=== PATIENT | female | born 2000 | race Caucasian/White ===

== ENCOUNTER → 2024-07-19 13:35 | Outpatient (BNVA) | payer SELFPAY | PROVIDERS: Visit Provider Nurse Practitioner Women's Health | DX: N91.2 Amenorrhea, unspecified (principal); Z32.01 Encounter for pregnancy test, result positive | CPT/HCPCS: 81025; 84144; 84702; 86850; 86900 ==

== ENCOUNTER → 2024-07-21 08:42 | Outpatient (BNVA) | payer SELFPAY | PROVIDERS: Visit Provider Nurse Practitioner Women's Health | DX: N96 Recurrent pregnancy loss (principal) | CPT/HCPCS: 84144; 84702 ==

== ENCOUNTER → 2024-07-26 12:20 | Outpatient (BNVA) | payer SELFPAY | PROVIDERS: Visit Provider Nurse Practitioner Women's Health | DX: Z36.87 Encounter for antenatal screening for uncertain dates (principal) | CPT/HCPCS: 76817 ==

== ENCOUNTER → 2024-08-15 14:01 | Outpatient (BNVA) | payer OTHER, SELFPAY | PROVIDERS: Visit Provider Obstetrics & Gynecology | DX: Z34.90 Encounter for supervision of normal pregnancy, unspecified, unspecified trimester (principal) | CPT/HCPCS: 84315 ==

== ENCOUNTER 2024-08-24 12:07 | Emergency (ER) | payer OTHER, SELFPAY ==
[2024-08-24 12:11] VITALS: BP 116/75; PULSE 99; RESP 16; TEMP 36.7; O2SAT 98
--- NOTE | 2024-08-24 12:25 | US_ITS ---
WS: [id number] EARLY OBSTETRICAL ULTRASOUND (<14 WEEKS). HISTORY: suspected miscarriage 11 weeks COMPARISON: 07/26/2024 Previously described intrauterine gestational sac is not identified. There is now markedly thickened heterogeneous endometrium. No normal residual gestational sac identified. No pole or heart rate identified. There is no free fluid. No adnexal mass other than the ovaries. US/US OB <=14 wk fetus w transvag IMPRESSION: 1. Incomplete spontaneous . 2. Large amount of retained products of the conception within the endometrium. No pole or cardiac activity identified.
[2024-08-24 13:23] LABS: HCG, Serum Qual Positive (Negative)
[2024-08-24 16:01] VITALS: BP 90/63; PULSE 97; RESP 16; O2SAT 99
--- NOTE | 2024-08-24 16:23 | W.ED.FEMALGU ---
HPI - Female Genitourinary General: Chief complaint: Vaginal Bleeding Stated complaint: possible miscarriage Time Seen by Provider: 08/24/24 16:01 History of Present Illness: 24-year-old female reports she is at approximately 11 weeks . She started having some cramping and bleeding last night. She discussed with her INJECTION MOLDER and was sent to the ER for evaluation of possible miscarriage. She reports her bleeding is down to minimal and she only has occasional cramps but no constant discomfort. No lightheadedness, dizziness, passing out. 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 Related Data Previous Rx's ?Medication ?Instructions ?Recorded progesterone micronized 200 mg 400 mg (2 x 200 mg) PO DAILY #60 07/20/24 capsule caps hydrocodone 5 mg-acetaminophen 325 1 tab PO Q4H PRN pain #20 tabs 08/24/24 mg tablet naproxen 250 mg tablet 250 mg PO BID PRN pain #20 tabs 08/24/24 Allergies Allergy/AdvReac Type Severity Reaction Status Date / Time No Known Allergies Allergy Verified 08/15/24 13:49 Review of Systems General: Reports: 10 or more systems reviewed and unremarkable except in HPI and below PFSH ED PFSH: Family History Denies family history of Colon cancer Ovarian cancer Diabetes Heart disease Breast cancer Uterine cancer Thyroid disease Stroke Social History Smoking and tobacco/nicotine status: never used tobacco/nicotine Physical Exam Const: COMMON NORMALS: no limitations, alert and well nourished EXAM LIMITATIONS: no altered mental status HENMT: COMMON NORMALS: normocephalic, atraumatic and external ears normal HEAD & SCALP: normocephalic and atraumatic EXTERNAL EAR: Yes external ears normal MOUTH: no muffled voice Eye: COMMON NORMALS: no scleral icterus Neck/C-Spine: COMMON NORMALS: no JVD GENERAL: Yes normal visual inspection and Yes trachea midline Resp: COMMON NORMALS: normal respiratory effort, No use of accessory muscles and clear to auscultation bilaterally AUSCULTATION: clear to auscultation bilaterally Cardio: COMMON NORMALS: no JVD and regular rate RATE: regular rate GI: COMMON NORMALS: Soft to palpation and non-tender PALPATION: Yes Soft to palpation and No Guarding due to palpation present (GI) Extremity: COMMON NORMALS: normal to inspection Neuro: COMMON NORMALS: moves all extremities, no focal motor deficits and no sensory deficits noted SENSORIUM/ORIENTATION: Yes alert SPEECH: speech normal Psych: COMMON NORMALS: mental status grossly normal, Normal thought process present, cooperative, normal affect and speech normal SPEECH: Yes normal speech THOUGHT PROCESS: Normal thought process present Skin: COMMON NORMALS: no rashes or lesions noted, turgor normal and no jaundice GENERAL SKIN EXAM: no rashes or lesions noted and turgor normal Course Vital Signs: Vital signs: Vital Signs Temperature 98.1 F 08/24/24 12:11 Pulse Rate 97 08/24/24 16:01 Respiratory Rate 16 08/24/24 16:01 Blood Pressure 90/63 08/24/24 16:01 Pulse Oximetry 99 08/24/24 16:01 Oxygen Delivery Me thod Room Air 08/24/24 12:11 MDM - Female Medical Decision Making Differential diagnosis includes threatened miscarriage, incomplete miscarriage, complete miscarriage, vaginal bleeding in early , subchorionic hemorrhage, other Rh type is negative. Patient will need RhoGAM. Microdoses of RhoGAM were not available. 1500 units was ordered. hCG qualitative was positive. Quantitative is pending Ultrasound of the uterus showed incomplete spontaneous . Large amount of retained products of conception no pole or cardiac activity Patient will get RhoGAM and I have counseled her about what to expect. She is going to contact her INJECTION MOLDER. Lab Data Radiology Impressions Obstetrics Ultrasound 08/24/24 12:25 IMPRESSION: 1. Incomplete spontaneous . 2. Large amount of retained products of the conception within the endometrium. No pole or cardiac activity identified. Laboratory Results HCG, Qual Positive (Negative) H 08/24/24 12:59 All radiology interpretation(s) finalized by discharge Discharge Plan Discharge Patient Disposition: Home Clinical Impression: Rh negative status during , Incomplete Condition: Stable Prescriptions: New hydrocodone-acetaminophen 5-325 mg tablet 1 tab PO Q4H PRN (Reason: pain) Qty: 20 0RF naproxen 250 mg tablet 250 mg PO BID PRN (Reason: pain) Qty: 20 0RF No Action progesterone micronized 200 mg capsule 400 mg PO DAILY Qty: 60 0RF Rx Instructions: take once daily at bedtime Discharge Orders: Discharge ED (Routine); Ordered 08/24/24 Ordered By: Everette Garcia Patient Instructions: Miscarriage (ED) Activity Restrictions/Additional Instructions: Version:1.0 StartHTML:[id number] EndHTML:[id number] StartFragment:[id number] EndFragment:[id number] Incomplete Miscarriage Discharge You have been diagnosed with an incomplete miscarriage at 11 weeks. This means that some tissue is still in your uterus. Your care team has chosen a management plan that is safe and supported by medical research. You will follow up with your nurse practitioner manager in 5 to 7 days. What to Expect: - You may have vaginal bleeding and cramping for several days. This is normal as your body passes the remaining tissue. - Bleeding should gradually decrease. It may be heavier than a period at first, then lighten. - You may see tissue or clots. This is expected. When to Seek Medical Help: - If you soak through two or more pads per hour for two hours in a row. - If you have severe pain that is not helped by [id number] pain medicine. - If you have a fever of 100.4?F (38?C) or higher, chills, or foul-smelling vaginal discharge. - If you feel dizzy, weak, or faint. Pain Management: - You can use acetaminophen (Tylenol) or ibuprofen (Advil, Motrin) as directed for pain. - A heating pad on your lower belly may help with cramps. Activity: - Rest as needed. You may return to normal activities as you feel able. - Avoid sexual intercourse, tampons, and douching until your doctor says it is safe. Follow-Up: - Keep your appointment with your nurse practitioner manager in 5 to 7 days. You may need an ultrasound or exam to make sure your uterus is empty. - If tissue remains, your doctor may discuss other options, such as medication or a minor procedure. Emotional Support: - Miscarriage can be emotionally difficult. Support from family, friends, or a counselor can help. Future Fertility: - Most women go on to have healthy pregnancies in the future. There is no evidence that expectant or medical management affects future fertility.[1]https://pubmed.ncbi.nlm.nih.gov/73958131[2]https://pubmed.ncbi.nlm.nih.gov/65919226[3]https://pubmed.ncbi.nlm.nih.gov/68762302[4]https://pubmed.ncbi.nlm.nih.gov/88742946[5]https://pubmed.ncbi.nlm.nih.gov/37619383 If you have any questions or concerns before your follow-up, contact your healthcare provider. Print Language: Lebanese Coding Level of Care Code ED Executive Assistant To General Counsel for Sarahi Patiño
[2024-08-24] MEDS: rho(d) immune globulin 1,500 unit Syringe 1500 UNIT IM (16:41)
[2024-08-24 17:12] VITALS: BP 121/78; PULSE 95; O2SAT 97
== END 2024-08-24 17:13 | disposition home or self-care (01) ==
PROVIDERS: Emergency Provider Emergency Medicine
DX: O03.4 Incomplete spontaneous abortion without complication (principal)
CPT/HCPCS: 36415; 76801; 76817; 84702; 84703; 96372; 99284; J2790

== ENCOUNTER 2024-08-25 09:28 | Emergency (ER) | payer OTHER, SELFPAY ==
[2024-08-25 09:32] VITALS: BP 119/80; PULSE 101; RESP 17; TEMP 36.7; O2SAT 97; BMI 33.6
--- NOTE | 2024-08-25 09:42 | US_ITS ---
WS: [id number] Pelvic ultrasound, 08/25/2024 Clinical Data: SAB w persistent bleeding Comparison: None. Findings: The uterus measures 10.1 cm x 6.0 cm x 5.1 cm. The endometrium is 1.8 cm. No intrauterine or abnormal intrauterine mass is seen. The ovaries were not imaged. There is minimal fluid in the cul-de-sac. The bladder was full and showed no bladder wall thickening or intraluminal defects. US/US pelvis lmt w transvag Impression: 1. Slightly enlarged uterus but no products of conception. 2. Endometrium 1.8 cm. 3. No imaging of the ovaries. 4. Minimal free fluid in the cul-de-sac.
[2024-08-25 09:56] LABS: Basophils % 0.3 %; Eosinophils # 0.1 10^3/uL (0.0-0.8); Eosinophils % 1.2 %; Hematocrit 33.4 % (36-47); Lymphocytes # 1.7 10^3/uL (0.8-4.8); Mean Corpuscular HGB Conc 33.5 g/dL (30-55); Mean Corpuscular Hemoglobin 30.3 pg (27-33); Mean Corpuscular Volume 90.3 fl (85-98); Mean Platelet Volume 8.7 fL (7.4-10.4); Monocytes # 0.3 10^3/uL (0.2-0.9); Monocytes % 4.1 %; Neutrophils # 4.72 10^3/uL (1.8-7.7); Neutrophils % 69.1 %; Nucleated Red Blood Cells % 0 %; Platelet Count 240 10^3/cmm (157-399); Red Cell Distribution Width 12.7 % (12.1-15.1); White Blood Count 6.83 10^3/uL (3.29-11.43)
[2024-08-25 10:16] LABS: Alanine Aminotransferase 17 U/L (0-33); Albumin Level 3.9 g/dL (3.5-5.2); Alkaline Phosphatase 50 U/L (35-105); Aspartate Amino Transferase 14 U/L (0-32); Blood Urea Nitrogen 8 mg/dL (6-20); Carbon Dioxide 22 mmol/L (22-29); Chloride 105 mmol/L (98-107); Creatinine Clr Calc Pharmacy 208.0701; Globulin 2.8 g/dL (1.3-4.6); Glomerular Filtration Rate 151.6 mL/min (90-130); Glucose 104 mg/dL (65-115); Osmolality Calculated 285 mOsm/kg (285-295); Sodium 138 mmol/L (136-145); Total Bilirubin 0.2 mg/dL (0.15-1.2); Total Protein 6.7 g/dL (6.6-8.7)
--- NOTE | 2024-08-25 10:20 | W.ED.PREGNAN ---
HPI - General: Chief complaint: Vaginal Bleeding Stated complaint: sent from ob / robbie,clotting Time Seen by Provider: 08/25/24 09:36 History of Present Illness: 20-year-old 4-year-old female directed here from the [facility] clinic in [facility]. Patient is G4, P1 she is at 10 weeks 5 days had a spontaneous AB. She continues to have heavy clotting and cramping has retained products of conception. This initially was noted A few weeks ago on an ultrasound that thought there was no identifiable heart tones later she was told that there was identifiable heart tones on a second evaluation. Ultrasound yesterday showed incomplete AB with retained products of conception. No pole no heart tones Associated symptoms: Deny abdominal pain or dysuria Related Data Previous Rx's ?Medication ?Instructions ?Recorded progesterone micronized 200 mg 400 mg (2 x 200 mg) PO DAILY #60 07/20/24 capsule caps hydrocodone 5 mg-acetaminophen 325 1 tab PO Q4H PRN pain #20 tabs 08/24/24 mg tablet naproxen 250 mg tablet 250 mg PO BID PRN pain #20 tabs 08/24/24 diclofenac sodium 75 mg 75 mg PO Q12H PRN pain #20 tabs 08/25/24 tablet,delayed release Allergies Allergy/AdvReac Type Severity Reaction Status Date / Time No Known Allergies Allergy Verified 08/15/24 13:49 Review of Systems Const: Denies: fever(s) or chills Card: Denies: chest pain Resp: Denies: dyspnea GI: Denies: abdominal pain : Reports: vaginal bleeding; Denies: dysuria, urinary frequency or urinary urgency Musc: Denies: neck pain or back pain Skin/Breast: Denies: rash PFSH ED PFSH: Medical History (Updated 08/25/24 @ 12:24 by Jimmy Whitlock DO) Rh negative status during History of recurrent miscarriages Family History Denies family history of Colon cancer Ovarian cancer Diabetes Heart disease Breast cancer Uterine cancer Thyroid disease Stroke Social History Smoking and tobacco/nicotine status: never used tobacco/nicotine Physical Exam Const: COMMON NORMALS: no acute distress GENERAL APPEARANCE: cooperative and comfortable ORIENTATION/CONSCIOUSNESS: Yes awake, Yes oriented to person, Yes oriented to place and Yes oriented to time HENMT: COMMON NORMALS: normocephalic, atraumatic and hearing grossly normal bilaterally HEAD & SCALP: normocephalic and atraumatic Resp: COMMON NORMALS: normal respiratory effort, No retractions, No use of accessory muscles and clear to auscultation bilaterally AUSCULTATION: clear to auscultation bilaterally Cardio: COMMON NORMALS: regular rate, regular rhythm and No murmurs present (Cardio) RATE: regular rate RHYTHM: regular rhythm GI: COMMON NORMALS: Soft to palpation and No hepatosplenomegaly present AUSCULTATION: Yes normoactive bowel sounds PALPATION: Yes Soft to palpation, No Tenderness to palpation present (GI), No Guarding due to palpation present (GI) and Yes No hepatosplenomegaly present Extremity: COMMON NORMALS: normal to inspection, capillary refill normal, no clubbing, cyanosis or edema, no calf tenderness and no pedal edema Neuro: SENSORIUM/ORIENTATION: Yes oriented to person, Yes oriented to place and Yes oriented to time Skin: COMMON NORMALS: no rashes or lesions noted GENERAL SKIN EXAM: no rashes or lesions noted Course Vital Signs: Vital signs: Vital Signs Temperature 98.1 F 08/25/24 09:32 Pulse Rate 89 08/25/24 12:41 Respiratory Rate 14 08/25/24 11:14 Blood Pressure 120/92 08/25/24 12:41 Pulse Oximetry 100 08/25/24 12:41 Oxygen Delivery Me thod Room Air 08/25/24 12:00 MDM - OB/Uterine Contractions Medical Decision Making No products of conception on ultrasound discussed with Dr. Giang. Will discharge patient home diclofenac to use as needed follow-up with [facility] clinic return if has further problems. Lab Data 08/25/24 09:48 08/25/24 09:48 Radiology Impressions Pelvic/Transvag US 08/25/24 09:42 Impression: 1. Slightly enlarged uterus but no products of conception. 2. Endometrium 1.8 cm. 3. No imaging of the ovaries. 4. Minimal free fluid in the cul-de-sac. Laboratory Results WBC 6.83 10^3/uL (3.29-11.43) 08/25/24 09:48 RBC 3.70 10^6/uL (3.85-5.65) L 08/25/24 09:48 Hgb 11.20 g/dL (11.27-16.99) L 08/25/24 09:48 Hct 33.4 % (36-47) L 08/25/24 09:48 MCV 90.3 fl (85-98) 08/25/24 09:48 MCH 30.3 pg (27-33) 08/25/24 09:48 MCHC 33.5 g/dL (30-55) 08/25/24 09:48 RDW 12.7 % (12.1-15.1) 08/25/24 09:48 Plt Count 240 10^3/cmm (157-399) 08/25/24 09:48 MPV 8.7 fL (7.4-10.4) 08/25/24 09:48 Neut % (Auto) 69.1 % 08/25/24 09:48 Lymph % (Auto) 25.0 % 08/25/24 09:48 [place] % (Auto) 4.1 % 08/25/24 09:48 Eos % (Auto) 1.2 % 08/25/24 09:48 Baso % (Auto) 0.3 % 08/25/24 09:48 Neut # (Auto) 4.72 10^3/uL (1.8-7.7) 08/25/24 09:48 Lymph # (Auto) 1.7 10^3/uL (0.8-4.8) 08/25/24 09:48 [place] # (Auto) 0.3 10^3/uL (0.2-0.9) 08/25/24 09:48 Eos # (Auto) 0.1 10^3/uL (0.0-0.8) 08/25/24 09:48 Baso # (Auto) 0.0 10^3/uL (0.0-0.1) 08/25/24 09:48 Nucleated RBC % (auto) 0 % 08/25/24 09:48 Nucleated RBCs # 0.0 /100WBC 08/25/24 09:48 Sodium 138 mmol/L (136-145) 08/25/24 09:48 Potassium 4.0 mmol/L (3.5-5.1) 08/25/24 09:48 Chloride 105 mmol/L (98-107) 08/25/24 09:48 Carbon Dioxide 22 mmol/L (22-29) 08/25/24 09:48 Anion Gap 15.0 (5-19) 08/25/24 09:48 BUN 8 mg/dL (6-20) 08/25/24 09:48 Creatinine 0.5 mg/dL (0.5-0.9) 08/25/24 09:48 GFR Calculation 151.6 mL/min (90-130) H 08/25/24 09:48 Glucose 104 mg/dL (65-115) 08/25/24 09:48 Calculated Osmolality 285 mOsm/kg (285-295) 08/25/24 09:48 Calcium 9.0 mg/dL (8.5-10.5) 08/25/24 09:48 Total Bilirubin 0.2 mg/dL (0.15-1.2) 08/25/24 09:48 AST 14 U/L (0-32) 08/25/24 09:48 ALT 17 U/L (0-33) 08/25/24 09:48 Alkaline Phosphatase 50 U/L (35-105) 08/25/24 09:48 Total Protein 6.7 g/dL (6.6-8.7) 08/25/24 09:48 Albumin 3.9 g/dL (3.5-5.2) 08/25/24 09:48 Globulin 2.8 g/dL (1.3-4.6) 08/25/24 09:48 All radiology interpretation(s) finalized by discharge Discharge Plan Discharge Patient Disposition: Home Clinical Impression: Complete miscarriage Condition: Stable Prescriptions: New diclofenac sodium 75 mg tablet,delayed release (DR/EC) 75 mg PO Q12H PRN (Reason: pain) Qty: 20 0RF No Action progesterone micronized 200 mg capsule 400 mg PO DAILY Qty: 60 0RF Rx Instructions: take once daily at bedtime hydrocodone-acetaminophen 5-325 mg tablet 1 tab PO Q4H PRN (Reason: pain) Qty: 20 0RF naproxen 250 mg tablet 250 mg PO BID PRN (Reason: pain) Qty: 20 0RF Discharge Orders: Discharge ED (Routine); Ordered 08/25/24 Ordered By: Jimmy Whitlock Referrals: Gus Aly MD [Primary Care Provider, [facility]] Discharge Diet: Usual diet Discharge Activity: Resume usual activity Patient Instructions: Opioid Safety, Pain Management Activity Restrictions/Additional Instructions: [facility] It is very important that you follow up as instructed or that you return to the Emergency Department should you have concerns or if your condition changes or worsens in any way. You are seen emergency room with concerns about persistent vaginal bleeding. Repeat ultrasound does not show any retained products of conception. Discussed with dietitian consultant on-call they do not recommend any further procedures. Is likely will still have some bleeding and cramping you can use diclofenac for that as needed contact Dr. Aly's office for follow-up Print Language: [place] Coding Level of Care Code ED [employer] Consultant for Sarahi Patiño
[2024-08-25 10:27] VITALS: BP 115/73; PULSE 96; RESP 16; O2SAT 96
[2024-08-25 11:14] VITALS: BP 114/84; PULSE 89; RESP 14; O2SAT 98
[2024-08-25 12:00] VITALS: BP 129/78; PULSE 94; O2SAT 98
[2024-08-25 12:41] VITALS: BP 120/92; PULSE 89; O2SAT 100
== END 2024-08-25 12:42 | disposition home or self-care (01) ==
PROVIDERS: Emergency Provider Family Medicine; PCP Obstetrics & Gynecology
DX: O03.9 Complete or unspecified spontaneous abortion without complication (principal)
CPT/HCPCS: 36415; 76830; 76857; 80053; 85025; 99284

== ENCOUNTER 2025-02-27 10:27 | Oncology outpatient (recurring) (ONCR) | payer BC, SELFPAY | END 2025-03-29 23:59 | disposition home or self-care (01) | PROVIDERS: PCP Family Medicine; Visit Provider Family Medicine | DX: O26.899 Other specified pregnancy related conditions, unspecified trimester (principal); Z67.91 Unspecified blood type, Rh negative; Z79.899 Other long term (current) drug therapy | CPT/HCPCS: 96372; J2790 ==

== ENCOUNTER 2025-03-01 13:50 | Outpatient (CLI) | payer BC, SELFPAY ==
[2025-03-01 13:50] VITALS: BMI 33.6
[2025-03-01 14:01] VITALS: BP 134/86; PULSE 106
[2025-03-01 14:33] VITALS: BP 94/51; PULSE 87
[2025-03-01 15:13] VITALS: BP 109/70; PULSE 90
== END 2025-03-01 15:22 | disposition home or self-care (01) ==
LOC: OPOB 13:52 → OBGYN 13:53
PROVIDERS: PCP Family Medicine; Visit Provider Family Medicine
DX: O26.899 Other specified pregnancy related conditions, unspecified trimester (principal); Z3A.00 Weeks of gestation of pregnancy not specified; M54.50 Low back pain, unspecified
CPT/HCPCS: 84112; 99211